=== PATIENT | female | born 1990 | race Caucasian/White ===

== ENCOUNTER → 2020-04-01 09:31 | Outpatient (BNVA) | payer MEDICAID, SELFPAY | PROVIDERS: Family Provider Nurse Practitioner Family; PCP Family Medicine; Visit Provider Nurse Practitioner Psychiatric/Mental Health | DX: F41.1 Generalized anxiety disorder (principal); F15.21 Other stimulant dependence, in remission; F43.12 Post-traumatic stress disorder, chronic; F33.41 Major depressive disorder, recurrent, in partial remission | CPT/HCPCS: 99212 ==

== ENCOUNTER → 2020-04-12 10:49 | Outpatient (BNVA) | payer MEDICAID, SELFPAY | PROVIDERS: Family Provider Nurse Practitioner Family; PCP Family Medicine; Visit Provider Nurse Practitioner Family | DX: Z20.822 Contact with and (suspected) exposure to COVID-19 (principal); J06.9 Acute upper respiratory infection, unspecified | CPT/HCPCS: 87635 ==

== ENCOUNTER → 2020-04-29 09:11 | Outpatient (BNVA) | payer MEDICAID, SELFPAY | PROVIDERS: Family Provider Nurse Practitioner Family; PCP Family Medicine; Visit Provider Nurse Practitioner Psychiatric/Mental Health | DX: F41.1 Generalized anxiety disorder (principal); F15.21 Other stimulant dependence, in remission; F43.12 Post-traumatic stress disorder, chronic; F33.41 Major depressive disorder, recurrent, in partial remission | CPT/HCPCS: 99213 ==

== ENCOUNTER 2020-08-03 07:03 | Emergency (ER) | payer MEDICAID, SELFPAY ==
[2020-08-03 07:06] VITALS: BP 118/82; PULSE 100; RESP 16; O2SAT 95; BMI 23.3
--- NOTE | 2020-08-03 07:15 | ED_ITS ---
HPI - Dental/Oral General: Chief complaint: Dental/Oral Stated complaint: poss abcsess in tooth Time Seen by Provider: 08/03/20 07:05 History of Present Illness: HPI Narrative: 30-year-old female presents emergency room with complaint of left lower jaw pain in the posterior molars. Began over the last couple of days markedly worse last night she is not had any fever sweats or chills. No vomiting no diarrhea. She has not seen a dentist for this. MD Complaint: tooth pain Location: Tooth # Teeth map: 1. Onset (ago): day(s) (2) Duration: constant Severity: moderate Relieving factors: nothing Exacerbating factors: chewing, cold and heat Context: history of dental caries Associated symptoms: Reports ear or mastoid pain, gum swelling, odynophagia and sore throat; Denies fever(s) or tongue swelling Treatment prior to arrival: none Review of Systems Const: Denies: fever(s) ENMT: Reports: odynophagia and ear or mastoid pain Card: Denies: chest pain, edema, dyspnea on exertion or orthopnea Resp: Denies: dyspnea, productive cough or non-productive cough GI: Denies: abdominal pain, nausea, vomiting, hematemesis, coffee ground emesis, diarrhea, constipation, bloating, hematochezia or melena : Denies: flank pain, difficulty voiding, dysuria, urinary frequency or urinary urgency Skin/Breast: Denies: rash or pruritus All/Imm: Denies: tongue swelling PFS ED PFSH: Medical History Major depressive disorder, recurrent, in partial remission Social History Smoking and tobacco status: current every day smoker cigarettes Packs smoked per day: 0.5 Years cigarettes smoked: 15 Quit status (tobacco): not considering quitting Second hand smoke exposure: Yes Physical Exam Const: COMMON NORMALS: no acute distress GENERAL APPEARANCE: cooperative and comfortable ORIENTATION/CONSCIOUSNESS: Yes awake, Yes oriented to person, Yes oriented to place and Yes oriented to time HENMT: COMMON NORMALS: normocephalic, atraumatic and hearing grossly normal bilaterally HEAD & SCALP: normocephalic and atraumatic OTHER: Some swelling of the gums adjacent to the tumors. Posterior molars on the left mandible. There is no pointed abscess no fluctuant areas. Neck/C-Spine: OTHER: No no cervical lymphadenopathy no submandibular swelling. No soft tissue swelling or fullness in the neck or submandibular space at all at the time of exam. Resp: COMMON NORMALS: normal respiratory effort, No retractions, No use of accessory muscles and clear to auscultation bilaterally AUSCULTATION: clear to auscultation bilaterally Cardio: COMMON NORMALS: regular rate, regular rhythm and No murmurs present (Cardio) RATE: regular rate RHYTHM: regular rhythm Neuro: SENSORIUM/ORIENTATION: Yes oriented to person, Yes oriented to place and Yes oriented to time Course Vital Signs: Vital signs: Vital Signs Pulse Rate 100 08/03/20 07:06 Respiratory Rate 16 08/03/20 07:06 Blood Pressure 118/82 08/03/20 07:06 Pulse Oximetry 95 08/03/20 07:06 MDM - Dental/Oral MDM Narrative: Medical decision making narrative: Start on Augmentin twice d aily. Tylenol with codeine as needed for pain can also use anti-inflammatories follow-up with dentist as soon as you are able. Discharge Plan Discharge Patient Disposition: Home Clinical Impression: Dental caries Condition: Stable Prescriptions: New Augmentin 875-125 mg tablet 1 tab PO BID Qty: 20 RF: 0 acetaminophen-codeine 300-60 mg tablet 1 tab PO Q6H PRN (Reason: pain) Qty: 10 RF: 0 No Action fluoxetine 60 mg tablet 60 mg PO QAM Qty: 30 RF: 1 buspirone 10 mg tablet 20 mg PO BID Qty: 60 RF: 2 Discharge Orders: Discharge ED (Routine); Ordered 08/03/20 Ordered By: Geovanny Cao Discharge Diet: Usual diet Discharge Activity: Resume usual activity Patient Instructions: Opioid Safety Activity Restrictions/Additional Instructions: Follow-up with your dentist as soon as you are able. Coding Level of Care Code ED Regional Service Manager for Aydee Renteria
[2020-08-03 07:25] VITALS: BP 110/77; PULSE 101; RESP 18; O2SAT 96
== END 2020-08-03 07:25 | disposition home or self-care (01) ==
PROVIDERS: Emergency Provider Family Medicine
DX: K02.9 Dental caries, unspecified (principal); F17.210 Nicotine dependence, cigarettes, uncomplicated
CPT/HCPCS: 99282

== ENCOUNTER 2020-11-27 11:25 | Emergency (ER) | payer MEDICAID, SELFPAY ==
[2020-11-27 11:28] VITALS: BP 134/89; PULSE 86; RESP 18; TEMP 36.6; O2SAT 99; BMI 21.1
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
[2020-11-27] MEDS: CELEcoxib 200 mg Capsule 400 MG PO (12:08)
[2020-11-27 13:12] LABS: Add Urine Microscopic? YES; Bilirubin Urine Neg (Negative); Blood Urine 2+ (Negative); Glucose Urine UA Norm (Normal); Ketones Urine Negative (Negative); Leukocyte Esterase Urine 1+ (Negative); Nitrate Urine Negative (Negative); Protein Urine Neg (Negative); Specific Gravity, Urine 1.005 (1.005-1.030); Urine Appearance Hazy (CLEAR); Urine Color Yellow (Yellow); Urobilinogen Urine Norm (Negative); pH Urine 7 (5-7)
[2020-11-27 13:13] LABS: RBC Urine 25-40 /hpf (0-2)
[2020-11-27 13:14] LABS: Add Urine Culture? Yes; Bacteria Urine 2+ /hpf; WBC Urine 55-80 /hpf (0-5)
== END 2020-11-27 13:32 | disposition home or self-care (01) ==
PROVIDERS: Emergency Provider Nurse Practitioner Family
DX: N30.01 Acute cystitis with hematuria (principal); Y04.2XXA Assault by strike against or bumped into by another person, initial encounter; F17.210 Nicotine dependence, cigarettes, uncomplicated
CPT/HCPCS: 81001; 87077; 87086; 87186; 99283

== ENCOUNTER 2021-01-10 18:31 | Emergency (ER) | payer MEDICAID, SELFPAY ==
[2021-01-10 18:46] VITALS: BP 125/86; PULSE 103; RESP 18; TEMP 36.5; O2SAT 99; BMI 20.3
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
[2021-01-10 19:02] VITALS: BP 125/86; PULSE 103; RESP 18; TEMP 36.5; O2SAT 99
== END 2021-01-10 19:50 | disposition home or self-care (01) ==
PROVIDERS: Emergency Provider Nurse Practitioner Family
DX: S01.21XA Laceration without foreign body of nose, initial encounter (principal); Y09 Assault by unspecified means; F17.210 Nicotine dependence, cigarettes, uncomplicated
CPT/HCPCS: 12013; 70450; 70486; 99282

== ENCOUNTER → 2021-08-06 17:20 | Outpatient (BNVA) | payer MEDICAID, SELFPAY | PROVIDERS: Visit Provider Family Medicine Adult Medicine | DX: R39.9 Unspecified symptoms and signs involving the genitourinary system (principal); N12 Tubulo-interstitial nephritis, not specified as acute or chronic | CPT/HCPCS: 81000 ==

== ENCOUNTER 2022-08-09 04:34 | Emergency (ER) | payer MEDICAID, SELFPAY ==
[2022-08-09 04:39] VITALS: BMI 18.6
[2022-08-09 04:41] VITALS: BP 135/95; PULSE 92; RESP 16; TEMP 36.6; O2SAT 99
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
--- NOTE | 2022-08-09 04:45 | ED_ITS ---
HPI - Neck Pain/Injury General: Chief Complaint: Neck Pain/Injury Stated Complaint: neck/ should pain Time Seen by Provider: 08/09/22 04:39 Source: patient Mode of arrival: ambulatory Limitations: no limitations History of Present Illness: 32-year-old female states that she had a fall a week ago she had fell on a swing landing on her right side she denies any pain states she has no pain throughout the week but states that starting last night she started having pain in her right neck and shoulders mainly over right trapezius muscle states is worse with movement and touch. Denies any loss of consciousness. Associated symptoms: Reports headache(s); Denies nausea Review of Systems Const: Denies: fever(s) or chills Eyes: Denies: eye discomfort ENMT: Denies: throat pain or dental pain Card: Denies: chest pain Resp: Denies: dyspnea GI: Denies: abdominal pain, nausea, vomiting or diarrhea : Denies: dysuria Musc: Reports: neck pain and extremity pain; Denies: back pain Skin/Breast: Denies: rash Neuro: Reports: headache(s) PFSH ED PFSH: Medical History (Updated 08/09/22 @ 04:51 by Florentino Monzon MD) Major depressive disorder, recurrent, in partial remission Pyelonephritis Social History Smoking and tobacco status: current every day smoker cigarettes Packs smoked per day: 0.5 Years cigarettes smoked: 15 Quit status (tobacco): not considering quitting Second hand smoke exposure: Yes Substance/Drug Use: never Female Reproductive History: Date of last menstrual period: 08/08/22 Physical Exam Const: COMMON NORMALS: no acute distress, patient oriented x3 and healthy appearing HENMT: COMMON NORMALS: normocephalic and atraumatic HEAD & SCALP: normocephalic and atraumatic Neck/C-Spine: COMMON NORMALS: full ROM and supple OTHER: Tenderness along right side of the neck no midline tenderness tenderness along trapezius muscles remain pain point. Chest: COMMONS NORMALS: normal inspection of the chest and normal palpation of entire chest wall Resp: COMMON NORMALS: normal respiratory effort, No retractions, No use of accessory muscles and clear to auscultation bilaterally AUSCULTATION: clear to auscultation bilaterally Cardio: COMMON NORMALS: regular rate, regular rhythm and No murmurs present (Cardio) RATE: regular rate RHYTHM: regular rhythm GI: COMMON NORMALS: Normal to inspection, nondistended, normoactive bowel sounds present, Soft to palpation, non-tender and no masses PALPATION: Yes Soft to palpation Extremity: COMMON NORMALS: normal to inspection and full ROM Neuro: COMMON NORMALS: patient oriented x3, moves all extremities and no focal motor deficits Psych: COMMON NORMALS: mental status grossly normal, Normal thought process present and cooperative THOUGHT PROCESS: Normal thought process present Skin: COMMON NORMALS: no rashes or lesions noted and no wounds GENERAL SKIN EXAM: no rashes or lesions noted Course Vital Signs: Vital signs: Vital Signs Temperature 97.8 F 08/09/22 04:41 Pulse Rate 92 08/09/22 04:41 Respiratory Rate 16 08/09/22 04:41 Blood Pressure 135/95 08/09/22 04:41 Pulse Oximetry 99 08/09/22 04:41 MDM - Neck Pain/Injury Medical Decision Making Patient presents with right shoulder neck pain is mainly over the trapezius muscle likely cervical strain she has no signs of any bony injuries we will prescribe her Naprosyn and Robaxin she is stable for discharge. Imaging Data xr r shoulder: I personally reviewed and interpreted this imaging study as follows: My impression: No acute abnormality Discharge Plan Discharge Patient Disposition: Home Clinical Impression: Strain of cervical portion of right trapezius muscle Condition: Stable Prescriptions: New methocarbamol 750 mg tablet 750 mg PO Q6H PRN (Reason: spasms) Qty: 20 0RF Naprosyn 500 mg tablet 500 mg PO BID PRN (Reason: pain) Qty: 20 0RF No Action ciprofloxacin HCl 750 mg tablet 750 mg PO BID Qty: 20 0RF Discharge Orders: Discharge ED (Routine); Ordered 08/09/22 Ordered By: Florentino Monzon Discharge Diet: Advance as tolerated Discharge Activity: Resume usual activity Patient Instructions: Cervical Strain (ED) Coding Level of Care Code ED Hydrometeorology Teacher for Aydee Renteria
[2022-08-09] MEDS: HYDROcodone-acetaminophen 5-325 mg Tablet 1 TAB PO (04:47)
--- NOTE | 2022-08-17 15:04 | DCPLANNER ---
OLLA called patient due to no primary care physician - patient stated that she sees Dr. Mcallister.
== END 2022-08-09 05:12 | disposition home or self-care (01) ==
PROVIDERS: Emergency Provider Emergency Medicine; PCP Family Medicine Adult Medicine
DX: S16.1XXA Strain of muscle, fascia and tendon at neck level, initial encounter (principal); F17.210 Nicotine dependence, cigarettes, uncomplicated; W09.1XXA Fall from playground swing, initial encounter
CPT/HCPCS: 73030; 99283

== ENCOUNTER 2023-03-16 09:16 | Emergency (ER) | payer MEDICAID, SELFPAY ==
[2023-03-16 09:41] VITALS: BP 124/88; PULSE 88; RESP 18; TEMP 36.8; O2SAT 98; BMI 27.3
--- NOTE | 2023-03-16 09:57 | ED_ITS ---
HPI - Dental/Oral 2 General: Chief complaint: Dental/Oral Stated complaint: tooth pain Time Seen by Provider: 03/16/23 09:43 Source: patient Mode of arrival: ambulatory Limitations: no limitations History of Present Illness: Patient is a 33-year-old female presents to ED today with complaint of molar pain to her left upper and lower regions. Patient states she occasionally will have pain here that she can normally treat with topical clove oil. She states over the past several days pain has become unbearable. She has been treating with Tylenol and Ibuprofen without any relief. She contacted a dentist office that takes adult Medicaid and has an appointment scheduled but this is not until April. She has not noticed any swelling to her face. She is able to eat, drink, articulate normally. She is not having any difficulty swallowing or controlling her secretions. No fevers or other systemic symptoms. She has not noticed any neck swelling. MD Complaint: tooth pain Teeth map: 1. 2. Onset (ago): day(s) Duration: constant Severity: severe Relieving factors: nothing Associated symptoms: Reports no associated symptoms; Denies ear or mastoid pain, fever(s) or odynophagia Treatment prior to arrival: topical analgesic (Clove oil) and oral analgesic (Acetaminophen/ibuprofen) Review of Systems 2 Const: Denies: fever(s), chills, body aches, fatigue or malaise Eyes: Denies: change in vision, blurry vision, photophobia, floaters or seeing flashes ENMT: Reports: dental pain; Denies: throat pain, uvular edema, enlarged tonsils, odynophagia, hoarseness, mouth pain, swelling of lips/tongue, oral sores, bleeding gums, ear or mastoid pain, nasal discharge, nasal congestion or sinus pain Card: Denies: chest pain Resp: Denies: dyspnea GI: Denies: nausea or vomiting Musc: Denies: neck pain Neuro: Denies: headache(s) PFSH ED 2 PFSH: Medical History Pyelonephritis Major depressive disorder, recurrent, in partial remission Social History Smoking and tobacco/nicotine status: current every day tobacco/nicotine user cigarettes Packs smoked per day: 0.5 Years cigarettes smoked: 15 Quit status (tobacco/nicotine): not considering quitting Second hand smoke exposure: Yes Substance/Drug Use: never Physical Exam 2 Const: COMMON NORMALS: no acute distress, average body habitus, patient oriented x3, no limitations, healthy appearing, alert and well nourished HENMT: COMMON NORMALS: normocephalic, atraumatic, hearing grossly normal bilaterally, external ears normal, EAC's normal, TM's normal bilaterally, Normal external nose present, Normal nasal mucous membranes and turbinates present, moist oral mucous membranes, oropharynx normal and gingiva normal HEAD & SCALP: normal to inspection, normocephalic and atraumatic FACE & SINUS: n ormal facial exam and sinuses nontender NOSE: Normal external nose present and Normal nasal mucous membranes and turbinates present EXTERNAL EAR: Yes external ears normal EXTERNAL AUDITORY CANAL: EAC's normal TYMPANIC MEMBRANE: TM's normal bilaterally MOUTH: Normal oral and palatal mucosa present, lip normal, tongue normal and Normal salivary glands and ducts present TEETH & GINGIVA: Yes other (multiple caries; impacted L lower wisdom tooth; no abscess) THROAT: posterior oropharynx normal and tonsils normal; no uvular edema Eye: GENERAL EYE: appearance normal, both eyes and all related structures Neck/C-Spine: COMMON NORMALS: full ROM and no lymphadenopathy GENERAL: Yes normal visual inspection, No anterior neck swelling and No submandibular swelling Resp: COMMON NORMALS: normal respiratory effort Cardio: COMMON NORMALS: regular rate and regular rhythm RATE: regular rate RHYTHM: regular rhythm Neuro: COMMON NORMALS: patient oriented x3 SENSORIUM/ORIENTATION: Yes alert Course 2 Vital Signs: Vital signs: Vital Signs Temperature 98.3 F 03/16/23 09:41 Pulse Rate 88 03/16/23 09:41 Respiratory Rate 18 03/16/23 09:41 Blood Pressure 124/88 03/16/23 09:41 Pulse Oximetry 98 03/16/23 09:41 Oxygen Delivery Me thod Room Air 03/16/23 09:41 MDM - Dental/Oral Medical Decision Making No dental abscess or evidence of deep space infection. Patient will be placed on antibiotics and given a small amount of pain medication as she states she is taking acetaminophen and ibuprofen without relief. She does have a dentist appointment scheduled however this is not until April. Discussed possibly being placed on a cancellation list or trying to find another clinic to see her sooner. Return ED precautions given. Differential Diagnosis Likely dental caries, toothache and dental abscess Medical Records I reviewed the patient's medical records. No radiology studies performed this visit Discharge Plan Discharge Patient Disposition: Home Clinical Impression: Toothache Condition: Stable Prescriptions: New penicillin V potassium 500 mg tablet 500 mg PO Q8H 7 Days Qty: 21 0RF tramadol 50 mg tablet 50 mg PO Q6H PRN (Reason: pain) Qty: 8 0RF No Action acetaminophen 325 mg Tablet 650 mg PO QID PRN (Reason: Pain) ibuprofen 200 mg Tablet 400 mg PO Q6H PRN (Reason: Pain) Discharge Orders: Discharge ED (Routine); Ordered 03/16/23 Ordered By: Cathy Overton Referrals: Serafin Mcallister MD [Primary Care Provider] - Patient Instructions: Toothache (ED) Coding Level of Care Code ED [employer] Examiner for Aydee Renteria
== END 2023-03-16 10:21 | disposition home or self-care (01) ==
PROVIDERS: Emergency Provider Physician Assistant; PCP Family Medicine Adult Medicine
DX: K08.89 Other specified disorders of teeth and supporting structures (principal); F17.210 Nicotine dependence, cigarettes, uncomplicated
CPT/HCPCS: 99283

== ENCOUNTER → 2025-01-18 15:26 | Outpatient (BNVA) | payer MEDICAID, SELFPAY | PROVIDERS: PCP Family Medicine Adult Medicine; Visit Provider Nurse Practitioner | DX: R39.9 Unspecified symptoms and signs involving the genitourinary system (principal) | CPT/HCPCS: 81000; 87086 ==